=== PATIENT | male | born 1995 | race Caucasian/White ===

== ENCOUNTER 2024-03-25 10:31 | Emergency (ER) | payer BC ==
[2024-03-25 10:38] VITALS: RESP 18
--- NOTE | 2024-03-25 10:56 | ED ---
Headache HPI - General Chief Complaint: Headache Stated Complaint: Upper body numbness Time Seen by Provider: 03/25/24 10:54 Source: patient, RN notes reviewed Mode of arrival: ambulatory Limitations: no limitations - History of Present Illness Initial Comments: 28-year-old male presented to the ER with a chief complaint of a right-sided headache. He reports he woke up this morning with a mild headache and took a Tylenol. 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 Numbness sparing neck and face. He denies any slurred speech, facial droop, photophobia, phonophobia, weakness, double/blurry vision, nausea, vomiting. Patient does admit he has a brain MRI scheduled for later this week to evaluate this numbness. Patient denies any fevers, cough, congestion, shortness of breath, abdominal pain, constipation/diarrhea or peripheral edema. - Related Data Home Medications Medication Instructions Recorded Confirmed Olmesartan Medoxomil [Benicar] 40 mg PO HS 03/25/24 03/25/24 Pantoprazole [Protonix] 40 mg PO HS 03/25/24 03/25/24 Zolpidem [Ambien] 10 mg PO HS PRN 03/25/24 03/25/24 amLODIPine [Norvasc] 10 mg PO HS 03/25/24 03/25/24 atenoloL 25 mg PO BID 03/25/24 03/25/24 Allergies Allergy/AdvReac Type Severity Reaction Status Date / Time bee venom protein (honey bee) Allergy Rash/Hives Verified 03/25/24 12:59 Review of Systems ROS Statement: Those systems with pertinent positive or pertinent negative responses have been documented in the HPI. ROS Other: All systems not noted in ROS Statement are negative. Past Medical History Past Medical History: GERD/Reflux, Hypertension Additional Past Medical History / Comment(s): thoracic outlet syndrome History of Any Multi-Drug Resistant Organisms: None Reported Past Surgical History: Cholecystectomy Past Psychological History: No Psychological Hx Reported Smoking Status: Never smoker Past Alcohol Use History: None Reported Past Drug Use History: None Reported General Exam General appearance: alert, in no apparent distress Head exam: Present: atraumatic, normocephalic, normal inspection Eye exam: Present: normal appearance, PERRL, EOMI. Absent: scleral icterus, conjunctival injection, periorbital swelling Pupils: Present: normal accommodation (5mm bilaterally) ENT exam: Present: normal exam, normal oropharynx, mucous membranes moist Respiratory exam: Present: normal lung sounds bilaterally. Absent: respiratory distress, wheezes, rales, rhonchi, stridor Cardiovascular Exam: Present: regular rate, normal rhythm, normal heart sounds. Absent: systolic murmur, diastolic murmur, rubs, gallop, clicks Neurological exam: Present: alert, oriented X3, CN II-XII intact Skin exam: Present: warm, dry, intact, normal color. Absent: rash Course Vital Signs 03/25/24 03/25/24 10:33 13:05 Temperature 97.9 F 98.2 F Pulse Rate 89 81 Respiratory 18 18 Rate Blood Pressure 130/78 131/81 O2 Sat by Pulse 97 97 Oximetry Medical Decision Making - Medical Decision Making Was pt. sent in by a medical professional or institution (, PA, FIELD EDUCATION DIRECTOR, urgent care, hospital, or alf...) When possible be specific @ -No Did you speak to anyone other than the patient for history (EMS, parent, family, police, friend...)? What history was obtained from this source @ -No Did you review nursing and triage notes (agree or disagree)? Why? @ -I reviewed and agree with nursing and triage notes Were old charts reviewed (outside hosp., previous admission, EMS record, old EKG, old radiological studies, urgent care reports/EKG's, alf records)? Report findings @ -No old charts were reviewed Differential Diagnosis (chest pain, altered mental status, abdominal pain women, abdominal pain men, vaginal bleeding, weakness, fever, dyspnea, syncope, headache, dizziness, GI bleed, back pain, seizure, CVA, palpatations, mental health, musculoskeletal)? @ -Differential Headache:Migraine, tension, cluster, carbon monoxide, central venous thrombosis, pension karma temporal arteritis, acute closure glaucoma, intercranial hemorrhage, mastoiditis, sinusitis, head injury, this is not meant to be an all-inclusive list. EKG interpreted by me (3pts min.). @ -As above X-rays interpreted by me (1pt min.). @ -None done CT interpreted by me (1pt min.). @ -CT brain negative for acute process U/S interpreted by me (1pt. min.). @ -None done What testing was considered but not performed or refused? (CT, X-rays, U/S, labs)? Why? @ -None What meds were considered but not given or refused? Why? @ -None Did you discuss the management of the patient with other professionals (professionals i.e. Dr., PA, FIELD EDUCATION DIRECTOR, lab, RT, psych nurse, social media assistant, executive office manager, teacher, chief school finance officer, family independence case manager)? Give summary @ -No Was smoking cessation discussed for >3mins.? @ -No Was critical care preformed (if so, how long)? @ -No Were there social determinants of health that impacted care today? How? (Homelessness, low income, unemployed, alcoholism, drug addiction, transportation, low edu. Level, literacy, decrease access to med. care, prison, rehab)? @ -No Was there de-escalation of care discussed even if they declined (Discuss DNR or withdrawal of care, Hospice)? DNR status @ -No What co-morbidities impacted this encounter? (DM, HTN, Smoking, COPD, CAD, Cancer, CVA, ARF, Chemo, Hep., AIDS, mental health diagnosis, sleep apnea, morbid obesity)? @ -None Was patient admitted / discharged? Hospital course, mention meds given and route, prescriptions, significant lab abnormalities, going to OR and other pertinent info. @ -Discharge. 28-year-old male presented to the ER with a chief complaint of a headache. History and physical exam completed. Vitals upon arrival temperature 97.9, heart rate 89, respiratory rate 18, blood pressure 130/78, oxygen saturation 97% on room air. Exam unremarkable. No acute neurological findings on exam. Patient in no signs of acute distress. CT brain performed due to sudden onset of headache. CT brain negative for acute process. Laboratory studies obtained unremarkable. Patient received IV fluids and Tylenol. Upon r eevaluation, patient resting comfortably in exam room reporting improved pain. Patient stable for discharge at this time. Results discussed with patient, all questions answered. Advise close follow-up with primary care physician. Return parameters discussed. Patient discharged stable condition. Patient verbally expressed understanding and agreement with care plan. Case discussed with ED attending, Dr. Lopez. Undiagnosed new problem with uncertain prognosis? @ -No Drug Therapy requiring intensive monitoring for toxicity (Heparin, Nitro, Insulin, Cardizem)? @ -No Were any procedures done? @ -No Diagnosis/symptom? @ -Headache Acute, or Chronic, or Acute on Chronic? @ -Acute Uncomplicated (without systemic symptoms) or Complicated (systemic symptoms)? @ -Uncomplicated Side effects of treatment? @ -No Exacerbation, Progression, or Severe Exacerbation? @ -No Poses a threat to life or bodily function? How? (Chest pain, [place], [place], pneumonia, PE, COPD, DKA, ARF, appy, cholecystitis, CVA, Diverticulitis, Homicidal, Suicidal, threat to staff... and all critical care pts) @ -No - Lab Data Result diagrams: 03/25/24 11:15 03/25/24 11:15 Lab Results 03/25/24 03/25/24 03/25/24 Range/Units 11:15 11:15 11:15 WBC 7.9 (3.8-10.6) k/uL RBC 5.43 (4.30-5.90) m/uL Hgb 14.8 (13.0-17.5) gm/dL Hct 44.7 (39.0-53.0) % MCV 82.3 (80.0-100.0) fL MCH 27.3 (25.0-35.0) pg MCHC 33.1 (31.0-37.0) g/dL RDW 13.2 (11.5-15.5) % Plt Count 259 (150-450) k/uL MPV 8.7 Neutrophils % 52 % Lymphocytes % 31 % Monocytes % 5 % Eosinophils % 10 % Basophils % 1 % Neutrophils # 4.2 (1.3-7.7) k/uL Lymphocytes # 2.4 (1.0-4.8) k/uL Monocytes # 0.4 (0-1.0) k/uL Eosinophils # 0.8 H (0-0.7) k/uL Basophils # 0.1 (0-0.2) k/uL Sodium 138 (137-145) mmol/L Potassium 3.8 (3.5-5.1) mmol/L Chloride 107 (98-107) mmol/L Carbon Dioxide 23 (22-30) mmol/L Anion Gap 8 mmol/L BUN 17 (9-20) mg/dL Creatinine 0.96 (0.66-1.25) mg/dL Est GFR (CKD-EPI)AfAm >90 (>60 ml/min/1.73 sqM) Est GFR (CKD-EPI)NonAf >90 (>60 ml/min/1.73 sqM) Glucose 111 H (74-99) mg/dL Plasma Lactic Acid Edvin 1.0 (0.7-2.0) mmol/L Calcium 9.5 (8.4-10.2) mg/dL Total Bilirubin 0.7 (0.2-1.3) mg/dL AST 28 (17-59) U/L ALT 24 (4-49) U/L Alkaline Phosphatase 54 (38-126) U/L Total Protein 7.2 (6.3-8.2) g/dL Albumin 4.7 (3.5-5.0) g/dL - EKG Data -: EKG Interpreted by [facility] EKG Comments: EKG taken at 10: 59 showing a sinus rhythm with sinus arrhythmia. T wave inversion in lead III. No other acute ST segment or T wave abnormalities.Ventricular rate 81, SD interval 136, QRS duration 126, QT/QTc 354/392. - Radiology Data Radiology results: report reviewed, image reviewed Disposition Clinical Impression: Headache Disposition: HOME SELF-CARE Condition: Stable Instructions (If sedation given, give patient instructions): Acute Headache (ED) Additional Instructions: Follow-up with PCP. Return to the ER for any new or worsening symptoms. Is patient prescribed a controlled substance at d/c from ED?: No Referrals: Juventino Brock MD [Primary Care Provider] - 1-2 days Time of Disposition: 12:57
[2024-03-25] MEDS: ACETAMINOPHEN TAB 325 MG TAB PO STA (11:23)
[2024-03-25] MEDS: SODIUM CHLORIDE 0.9% 1,000 ML IV STA (11:23)
--- NOTE | 2024-03-25 11:33 | CT ---
EXAMINATION TYPE: CT brain wo con DATE OF EXAM: 03/25/2024 COMPARISON: None HISTORY: 28-year-old male Sudden onset of lightheadedness, headache RT side, hx BP headaches, recentl y diagnosed with thoracic outlet syndrome. TECHNIQUE: Examination was done in axial plane without intravenous contrast. Coronal and sagittal r econstructions performed. CT DLP: 1140.4 mGycm Automated exposure control for dose reduction was used. FINDINGS: There is no evidence of acute intracranial hemorrhage, acute ischemic changes, mass, mass-effect, or extra-axial fluid collection. There is no effacement of cerebral sulci or basal subarachnoid cister ns. There is no hydrocephalus. There is no midline shift. Kauffman-white matter distinction is preserv ed. Moderate mucosal thickening anterior right ethmoid air cells. Mastoid air cells well pneumatized. Orb its and globes are intact. IMPRESSION: No acute intracranial abnormality seen. Moderate chronic sinus disease right ethmoid air cells.
[2024-03-25 12:21] LABS: Basophils # (A) 0.1 k/uL (0-0.2); Basophils % (A) 1 %; Eosinophils # (A) 0.8 k/uL (0-0.7); Eosinophils % (A) 10 %; HCT 44.7 % (39.0-53.0); HGB 14.8 gm/dL (13.0-17.5); Lymphocytes # (A) 2.4 k/uL (1.0-4.8); Lymphocytes % (A) 31 %; MCH 27.3 pg (25.0-35.0); MCHC 33.1 g/dL (31.0-37.0); MCV 82.3 fL (80.0-100.0); Mean Platelet Volume 8.7; Monocytes # (A) 0.4 k/uL (0-1.0); Monocytes % (A) 5 %; Neutrophils # (A) 4.2 k/uL (1.3-7.7); Neutrophils % (A) 52 %; Platelet Count 259 k/uL (150-450); RBC 5.43 m/uL (4.30-5.90); RDW 13.2 % (11.5-15.5); WBC 7.9 k/uL (3.8-10.6)
[2024-03-25 12:37] LABS: ALT 24 U/L (4-49); AST 28 U/L (17-59); African American GFR (CKD) >90 (>60 ml/min/1.73 sqM); Albumin 4.7 g/dL (3.5-5.0); Alkaline Phosphatase 54 U/L (38-126); Anion Gap 8 mmol/L; Blood Urea Nitrogen 17 mg/dL (9-20); Calcium 9.5 mg/dL (8.4-10.2); Carbon Dioxide 23 mmol/L (22-30); Chloride 107 mmol/L (98-107); Glucose 111 mg/dL (74-99); Non-African American GFR(CKD) >90 (>60 ml/min/1.73 sqM); Potassium 3.8 mmol/L (3.5-5.1); Sodium 138 mmol/L (137-145); Total Bilirubin 0.7 mg/dL (0.2-1.3); Total Protein 7.2 g/dL (6.3-8.2)
[2024-03-25 13:06] VITALS: BP 131/81; PULSE 81; TEMP 98.2
== END 2024-03-25 13:09 | disposition home or self-care (01) ==
LOC: EC 10:31
DX: R51.9 Headache, unspecified (principal); I49.8 Other specified cardiac arrhythmias; Z91.030 Bee allergy status
CPT/HCPCS: 36415; 70450; 80053; 83605; 85025; 93005; 96360; 96361; 99284

== ENCOUNTER → 2025-01-10 | Outpatient (CLI) | payer BC ==
--- NOTE | 2025-01-13 08:28 | MR ---
EXAMINATION TYPE: MR brain/cspine wo/w DATE OF EXAM: 01/10/2025 9:37 PM COMPARISON: 03/25/2024. CLINICAL INDICATION: Male, 29 years old with history of M54.81 OCCIPITAL NEURALGIA; PHH, Eye sight is sues , chest tightness, neck pain that radiates down arms. TECHNIQUE: Multi planar, multi sequence imaging was performed through the brain including: T1, T2, Inversion rec overy, Diffusion weighted imaging, and gradient echo imaging. No gadolinium was given. Multi planar, multi sequence imaging was performed utilizing: T1-weighted, T2-weighted, and turbo inv ersion recovery imaging of the cervical spine. IV Contrast: 11 mL Gadobutrol FINDINGS: The covarrubias-white junctions, ventricular system, basal cisterns appear unremarkable.. Midline structures show no abnormality. Diffusion-weighted imaging shows no evidence of restricted diffusion. The susce ptibility weighted images do not reveal any evidence for micro-hemorrhage. Parotid gland lymph nodes bilaterally. No abnormal postcontrast enhancement. The bone marrow signal is within normal limits. Paranasal sinuses and mastoid air cells: Mild mucosal thickening of the ethmoid air cells right front al sinus and right sphenoid sinus. Visualized orbits: Orbital contents are intact. Alignment: The cervical vertebral bodies have preserved heights. Alignment is within normal limits gi ashok patient positioning. Bones: Bone signal is within normal limits. No abnormal bone marrow edema on inversion recovery seque nces. No abnormal postcontrast enhancement. Cord: The spinal cord is unremarkable with regards to their signal intensity and morphology. No abnor mal postcontrast enhancement. Discs: Intervertebral disc signal is maintained. C2-C3: No significant disc pathology. The spinal canal is patent. No neural foraminal stenosis. C3-C4: No significant disc pathology. The spinal canal is patent. No neural foraminal stenosis. C4-C5: No significant disc pathology. The spinal canal is patent. No neural foraminal stenosis. C5-C6: No significant disc pathology. The spinal canal is patent. No neural foraminal stenosis. C6-C7: No significant disc pathology. The spinal canal is patent. No neural foraminal stenosis. C7-T1: No significant disc pathology. The spinal canal is patent. No neural foraminal stenosis. Other: None. IMPRESSION: 1. No evidence for disc herniation or significant spinal canal stenosis. 2. Mild paranasal sinus disease. 3. No evidence of intracranial mass or acute/subacute infarct. No abnormal postcontrast enhancement within the brain. 4. No significant degeneration changes or abnormal postcontrast enhancement within the spine. [facility], , 01/13/2025 8:26 AM
== END | disposition home or self-care (01) ==
LOC: RADMRIMAIN 20:45
PROVIDERS: ATTEND Psychiatry & Neurology Neurology
DX: M54.81 Occipital neuralgia (principal); J34.89 Other specified disorders of nose and nasal sinuses
CPT/HCPCS: 70553; 72156; A9585

== ENCOUNTER 2025-01-28 21:35 | Emergency (ER) | payer BC ==
--- NOTE | 2025-01-28 22:11 | ED ---
Chest Pain HPI - General Chief Complaint: Chest Pain Stated Complaint: Chest Pain, L Arm Pain Time Seen by Provider: 01/28/25 21:57 Source: patient, RN notes reviewed Mode of arrival: ambulatory Limitations: no limitations - History of Present Illness Initial Comments: This is a 29-year-old male who presents to the emergency department for chest pain. Patient reports feeling dizzy and weak for the last 2 days with some pain in his left arm. Symptoms persisted into today and a few hours prior to arrival he developed dull aching pain in the center of his chest. Denies any shortness of breath. Denies any history of chest pain or personal history of cardiac issues. He does report a cardiac history in his father, however he is unsure how old he was when his cardiac issues began. MD Complaint: chest pain - Related Data Home Medications Medication Instructions Recorded Confirmed Olmesartan Medoxomil [Benicar] 40 mg PO HS 03/25/24 03/25/24 Pantoprazole [Protonix] 40 mg PO HS 03/25/24 03/25/24 Zolpidem [Ambien] 10 mg PO HS PRN 03/25/24 03/25/24 amLODIPine [Norvasc] 10 mg PO HS 03/25/24 03/25/24 atenoloL 25 mg PO BID 03/25/24 03/25/24 Allergies Allergy/AdvReac Type Severity Reaction Status Date / Time bee venom protein (honey bee) Allergy Rash/Hives Verified 01/28/25 21:47 Review of Systems ROS Statement: Those systems with pertinent positive or pertinent negative responses have been documented in the HPI. ROS Other: All systems not noted in ROS Statement are negative. Past Medical History Past Medical History: GERD/Reflux, Hypertension Additional Past Medical History / Comment(s): thoracic outlet syndrome History of Any Multi-Drug Resistant Organisms: None Reported Past Surgical History: Cholecystectomy Past Psychological History: No Psychological Hx Reported Smoking Status: Never smoker Past Alcohol Use History: None Reported Past Drug Use History: None Reported General Exam Limitations: no limitations General appearance: alert, in no apparent distress Head exam: Present: atraumatic, normocephalic, normal inspection Respiratory exam: Present: normal lung sounds bilaterally. Absent: respiratory distress, wheezes, rales, rhonchi, stridor Cardiovascular Exam: Present: regular rate, normal rhythm GI/Abdominal exam: Present: soft, normal bowel sounds. Absent: distended, tenderness, guarding, rebound, rigid Neurological exam: Present: alert, oriented X3, CN II-XII intact Expanded Cerebellar function: Finger to Nose: Normal, Heel to Mccullough: Normal, Romberg: Normal Motor strength exam: RUE: 5, LUE: 5, RLE: 5, LLE: 5 Psychiatric exam: Present: normal affect, normal mood Skin exam: Present: warm, dry, intact, normal color. Absent: rash Course Vital Signs 01/28/25 01/28/25 01/29/25 21:44 23:30 00:13 Temperature 98.4 F 98.3 F Pulse Rate 67 73 74 Respiratory 19 19 18 Rate Blood Pressure 134/80 125/68 109/61 O2 Sat by Pulse 99 99 100 Oximetry Chest Pain MDM - MDM This is a 29 year old male who presents to the emergency department for chest pain. Was pt. sent in by a medical professional or institution? @ -No Did you speak to anyone other than the patient for history? @ -No Did you review nursing and triage notes? @ -Yes, and I agree, it is accurate with regards to the patient's symptoms. Were old charts reviewed? @ -No Differential Diagnosis? @ -Differential Chest Pain: Stable Angina, Unstable Angina, STEMI, NSTEMI Aortic Dissection, Pneumothorax, Musculoskeletal, Esophageal Spasm GERD, Cholecystitis, Pancreatitis, Zoster, this is not meant to be an all-inclusive list. EKG interpreted by me (3pts min.)? @ -EKG interpreted by me demonstrating the following: Sinus rhythm. Ventricular rate 65 bpm, PA interval 166 ms, QRS duration 120 ms, QTc 398 ms. X-rays interpreted by me (1pt min.)? @ -Chest x-ray obtained, my interpretation identifies no localized consolidations or infiltrates. CT interpreted by me (1pt min.)? @ -Not obtained U/S interpreted by me (1pt. min.)? @ -Not obtained What testing was considered but not performed? (CT, X-rays, U/S, labs)? Why? @ -None What meds were considered but not given? Why? @ -None Did you discuss the management of the patient with other professionals? @ -No Did you reconcile home meds? @ -No Was smoking cessation discussed for >3mins.? @ -No Was critical care preformed (if so, how long)? @ -No Were there social determinants of health that impacted care today? How? (Homelessness, low income, unemployed, alcoholism, drug addiction, transportation, low edu. Level, literacy, decrease access to med. care, intermediate, rehab)? @ -No Was there de-escalation of care discussed even if they declined? (Discuss DNR or withdrawal of care, Hospice)? @ -No What co-morbidities impacted this encounter? (DM, HTN, Smoking, COPD, CAD, Cancer, CVA, Hep., AIDS, mental health diagnosis, sleep apnea, morbid obesity)? @ -HTN Was patient admitted / discharged? @ -Discharged. Lab work demonstrates mild leukocytosis with a white blood cell count of 14.03 and is otherwise unremarkable. Troponin negative. Chest x-ray reveals no acute process. Patient treated with IV fluids and Toradol with improvement in symptoms. Advised he alternate with ibuprofen and Tylenol as needed for pain relief and follow-up with his primary care provider in the next couple of days. Patient discharged home in stable condition. Case discussed with ED attending Dr. Dewey. Return precautions reviewed in depth, the patient is instructed to return to the emergency department with any new, worsening, or concerning symptoms. Patient verbalized understanding. Undiagnosed new problem with uncertain prognosis? @ -None Drug Therapy requiring intensive monitoring for toxicity (Heparin, Nitro, Insulin, Cardizem)? @ -None Were any procedures done? @ -None Diagnosis/symptom? @ -Chest pain Acute, or Chronic, or Acute on Chronic? @ -Acute Uncomplicated (without systemic symptoms) or Complicated (systemic symptoms)? @ -Uncomplicated Side effects of treatment? @ -None Exacerbation, Progression, or Severe Exacerbation] @ -Not applicable Poses a threat to life or bodily function? @ -No Disposition Clinical Impression: Chest pain Disposition: HOME SELF-CARE Instructions (If sedation given, give patient instructions): Chest Pain (ED), Noncardiac Chest Pain (ED) Additional Instructions: Return to the emergency department with any new, worsening, or concerning symptoms. Alternate with ibuprofen and Tylenol as needed for pain relief. Follow up with your primary care provider in 1-2 days. Is patient prescribed a controlled substance at d/c from ED?: No Referrals: Juventino Brock MD [Primary Care Provider] - 1-2 days Time of Disposition: 23:54
[2025-01-28] MEDS: SODIUM CHLORIDE 0.9% 1,000 ML IV STA (22:23)
[2025-01-28 22:32] LABS: Basophils # (A) 0.03 10*3/uL (0.00-0.10); Basophils % (A) 0.2 %; Eosinophils # (A) 0.09 10*3/uL (0.04-0.35); Eosinophils % (A) 0.6 %; HCT 43.8 % (39.6-50.0); HGB 14.7 g/dL (13.0-17.0); Lymphocytes # (A) 2.45 10*3/uL (0.90-5.00); Lymphocytes % (A) 17.5 %; MCHC 33.6 g/dL (32.0-37.0); MCV 83.4 fL (80.0-97.0); Mean Platelet Volume 10.3 fL (9.5-12.2); Monocytes # (A) 0.62 10*3/uL (0.20-1.00); Monocytes % (A) 4.4 %; Neutrophils # (A) 10.79 10*3/uL (1.80-7.70); Neutrophils % (A) 76.9 %; Platelet Count 339 10*3/uL (140-440); RBC 5.25 10*6/uL (4.40-5.60); RDW 13.2 % (11.5-14.5); WBC 14.03 10*3/uL (4.50-10.00)
[2025-01-28 22:42] LABS: ALT 20 U/L (4-49); AST 24 U/L (17-59); African American GFR (CKD) >90 (>60 ml/min/1.73 sqM); Albumin 5.1 g/dL (3.5-5.0); Alkaline Phosphatase 43 U/L (38-126); Anion Gap 12 mmol/L; Blood Urea Nitrogen 23 mg/dL (9-20); Calcium 10.1 mg/dL (8.4-10.2); Carbon Dioxide 22 mmol/L (22-30); Chloride 102 mmol/L (98-107); Glucose 91 mg/dL (74-99); Lipase 100 U/L (23-300); Magnesium 2.1 mg/dL (1.6-2.3); Non-African American GFR(CKD) >90 (>60 ml/min/1.73 sqM); Potassium 4.2 mmol/L (3.5-5.1); Sodium 136 mmol/L (137-145); Total Bilirubin 0.7 mg/dL (0.2-1.3); Total Protein 7.7 g/dL (6.3-8.2)
[2025-01-28 22:47] LABS: Partial Thromboplastin Time 26.3 sec (22.0-30.0)
[2025-01-28] MEDS: KETOROLAC 15 MG/ML 1 ML VIAL IVP STA (23:26)
[2025-01-29 00:14] VITALS: BP 109/61; PULSE 74; RESP 18; TEMP 98.3
--- NOTE | 2025-01-29 01:29 | XR ---
EXAM: XR Chest, 2 Views CLINICAL HISTORY: ITS.REASON XR Reason: Chest Pain TECHNIQUE: Frontal and lateral views of the chest. COMPARISON: No relevant prior studies available. FINDINGS: Lungs: Unremarkable. No consolidation. Pleural space: Unremarkable. No pneumothorax. Heart: Unremarkable. No cardiomegaly. Mediastinum: Unremarkable. Bones/joints: Unremarkable. IMPRESSION: Normal chest x-rays.
== END 2025-01-29 00:16 | disposition home or self-care (01) ==
LOC: EC 21:35
DX: R07.9 Chest pain, unspecified (principal); I10 Essential (primary) hypertension; Z91.030 Bee allergy status
CPT/HCPCS: 96374; 96361; 36415; 93005; 80053; 83690; 83735; 84484; 85025; 85610; 85730; 71046; 99285; J1885